=== PATIENT | male | born 1990 | race Caucasian/White ===

== ENCOUNTER 2016-11-04 18:46 | Emergency (ER) | payer BC ==
[2016-11-04 19:02] VITALS: RESP 16
--- NOTE | 2016-11-04 19:16 | ED ---
Lower Extremity Injury HPI - General Chief Complaint: Extremity Injury, Lower Stated Complaint: LEFT ANKLE INJURY Time Seen by Provider: 11/04/16 19:00 Source: patient Mode of arrival: ambulatory Limitations: no limitations - History of Present Illness Initial Comments: Patient is a 26-year-old white male presenting to the emergency department with complaints of left lateral ankle pain. Patient states he was walking when he stepped in a pothole at 4 AM last night. Patient states he felt immediate pain but no pop or snap. Patient was able to ambulate at scene of accident and is able to ablate in the emergency department. Patient denies previous injury or surgery to left lower extremity. No history of recent illness, fevers, chills, nausea, vomiting, shortness of breath, chest pain, abdominal pain, numbness or tingling. MD Complaint: ankle injury Onset/Timin -: hour(s) Time: 04:00 Injury: Ankle: Left Type of Injury: eversion Place: street/outdoors Severity: moderate Severity scale (1-10): 4 Improves With: NSAID Worsens With: weight bearing, movement, palpation Context: other (Patient stepped in a pothole) Associated Symptoms: ambulatory Treatments Prior to Arrival: cold therapy, NSAIDS - Related Data Previous Rx's Medication Instructions Recorded Ibuprofen [Motrin] 800 mg PO Q8HR PRN #20 tab 11/04/16 Allergies Allergy/AdvReac Type Severity Reaction Status Date / Time Penicillins Allergy Nausea & Verified 11/04/16 19:02 Vomiting Review of Systems ROS Statement: Those systems with pertinent positive or pertinent negative responses have been documented in the HPI. ROS Other: All systems not noted in ROS Statement are negative. Past Medical History Past Medical History: No Reported History History of Any Multi-Drug Resistant Organisms: None Reported Past Surgical History: Adenoidectomy, Orthopedic Surgery, Tonsillectomy Past Psychological History: No Psychological Hx Reported Smoking Status: Former smoker Past Alcohol Use History: Occasional Past Drug Use History: None Reported General Exam Limitations: no limitations General appearance: alert, in no apparent distress Head exam: Present: atraumatic, normocephalic, normal inspection Eye exam: Present: normal appearance Neck exam: Present: normal inspection, full ROM. Absent: tenderness Respiratory exam: Present: normal lung sounds bilaterally. Absent: respiratory distress, wheezes, rales, rhonchi, stridor Cardiovascular Exam: Present: regular rate, normal rhythm, normal heart sounds GI/Abdominal exam: Present: soft, normal bowel sounds. Absent: tenderness Left Lower Leg exam: Present: normal inspection, full ROM. Absent: tenderness, swelling Ankle exam: Present: full ROM, tenderness (Tenderness to lateral malleolus), swelling (Mild swelling). Absent: ecchymosis, deformity, anterior draw sign Foot/Toe exam: Present: normal inspection, full ROM. Absent: tenderness, swelling Neurovascular tendon exam: Present: no vascular compromise. Absent: pulse deficit, abnormal cap refill, motor deficit, sensory deficit, tendon deficit, extremity cold to touch, pallor, abnormal 2-point discrimination, decreased fine /light touch, foot drop, significant pain with passive ROM of distal joint Gait: observed and limited by pain Neurological exam: Present: alert, oriented X3, other (No focal deficits). Absent: motor sensory deficit Psychiatric exam: Present: normal affect, normal mood Skin exam: Present: warm, dry, intact, normal color Course Vital Signs 11/04/16 18:59 Temperature 98 F Pulse Rate 60 Respiratory 16 Rate Blood Pressure 144/74 O2 Sat by Pulse 96 Oximetry Medical Decision Making - Medical Decision Making Left ankle sprain. X-ray of left ankle without evidence of fracture or dislocation. Tin wrap applied. Patient instructed to follow-up with orthopedic surgeon if symptoms do not improve in 7-10 days. Patient agrees with treatment plan. Discharge instructions and return parameters reviewed. - Radiology Data Radiology results: report reviewed Left ankle x-ray: Ankle mortise is anatomic. No fracture or dislocation. Joint spaces are normal. Evidence of small plantar calcaneal spur. Disposition Clinical Impression: Left ankle sprain Disposition: HOME SELF-CARE Condition: Good Instructions: Ankle Sprain (ED) Additional Instructions: Avoid activity that causes pain Ice 20 minutes 4 times a day usually for 2-3 days Tin wrap to provide support and limit swelling Keep elevated as much as possible 24-48 hours. Continue Motrin 800 mg 3 times a day for next 24 hours. Return to the emergency department with symptoms of increased swelling, pain, numbness, tingling, or foot feeling cold to touch. Follow-up with primary care physician and orthopedic service as directed. Prescriptions: Ibuprofen [Motrin] 800 mg PO Q8HR PRN #20 tab PRN Reason: Pain Referrals: None,Stated [Primary Care Provider] - 1-2 days Kin Posada MD [STAFF PHYSICIAN] - 1-2 days Time of Disposition: 19:54
--- NOTE | 2016-11-04 19:40 | XR ---
EXAMINATION TYPE: XR ankle complete LT DATE OF EXAM: 11/04/2016 7:17 PM COMPARISON: NONE HISTORY: Ankle pain TECHNIQUE: 3 views FINDINGS: Ankle mortise is anatomic. I see no fracture nor dislocation. Joint spaces are normal. IMPRESSION: Negative left ankle exam. There is noted a small plantar calcaneal spur.
[2016-11-04 20:10] VITALS: BP 120/70; PULSE 79; TEMP 98.9
== END 2016-11-04 20:09 | disposition home or self-care (01) ==
LOC: EC 18:46
DX: S93.402A Sprain of unspecified ligament of left ankle, initial encounter (principal); W17.2XXA Fall into hole, initial encounter; Y93.01 Activity, walking, marching and hiking; Z88.0 Allergy status to penicillin; Z87.891 Personal history of nicotine dependence; M77.32 Calcaneal spur, left foot
CPT/HCPCS: 99283

== ENCOUNTER 2022-02-13 20:36 | Emergency (ER) | payer OTHER, BC ==
[2022-02-13 20:41] VITALS: BP 161/101; PULSE 85; RESP 18; TEMP 98.2
== END 2022-02-13 22:42 ==
LOC: EC 20:36
DX: Z02.83 Encounter for blood-alcohol and blood-drug test (principal)
CPT/HCPCS: 99499